=== PATIENT | male | born 1955 | race Hispanic/Latino ===

== ENCOUNTER 2021-05-09 06:16 | Day surgery (SDC) | payer OTHER ==
[2021-05-09] MEDS: Ringers Lactate 1,000 ML IV ONE ×2 (06:50→07:13)
[2021-05-09] MEDS ORDERED: propofoL 200 MG/20 ML VIAL IV ONE ×3 (07:07→07:18)
[2021-05-09] MEDS ORDERED: LIDOCAINE 1% MPF 2 ML AMPULE ONE (07:07)
[2021-05-09] MEDS ORDERED: GLYCOPYRROLATE 0.2 MG/ML SYR ONE (07:07)
[2021-05-09 08:35] VITALS: O2SAT 97
[2021-05-09 08:37] VITALS: BP 165/76; TEMP 97.2
== END 2021-05-09 08:25 | disposition home or self-care (01) ==
LOC: OR 06:16
PROVIDERS: ATTEND Surgery
PROC: 0DJD8ZZ Inspection of Lower Intestinal Tract, Via Natural or Artificial Opening Endoscopic (ICD-10-PCS; principal; 2021-05-09 07:30)
DX: K62.5 Hemorrhage of anus and rectum (principal); K64.4 Residual hemorrhoidal skin tags; K64.8 Other hemorrhoids; K57.30 Diverticulosis of large intestine without perforation or abscess without bleeding; Z20.822 Contact with and (suspected) exposure to COVID-19
CPT/HCPCS: 45378; U0003; J2704; J7120

== ENCOUNTER 2021-10-29 07:22 | Day surgery (SDC) | payer OTHER ==
[2021-10-29 07:51] LABS: Hematocrit 41.8 % (39.6-49.0); Lymphocytes % 27.3 % (15.3-44.8); MPV 8.7 fL (7.6-11.3); RBC Red Blood Cell Count 4.67 M/uL (4.33-5.43)
--- NOTE | 2021-10-29 08:00 | RAD REPORT ---
EXAM DESCRIPTION: RAD - Chest Pa And Lat (2 Views) - 10/29/2021 7:54 am CLINICAL HISTORY: pre procedural screening Chest pain. COMPARISON: No comparisons FINDINGS: The lungs are emphysematous but clear. The heart is upper limit of normal in size. No disp laced fractures. IMPRESSION: Prominent COPD. The USPSTF recommends annual screening for lung cancer with low-dose CT (LDCT) in adults aged 50 to 8 0 years who have a 20 pack-year smoking history and currently smoke or have quit within the past 15 y ears.
[2021-10-29] MEDS ORDERED: CEFAZOLIN SODIUM 1 GM/VIAL ONE (08:04)
[2021-10-29] MEDS ORDERED: Ringers Lactate 1,000 ML IV ONE (08:04)
[2021-10-29] MEDS ORDERED: FENTANYL CITR 100 MCG/2 ML ONE ×2 (08:11→08:27)
[2021-10-29] MEDS ORDERED: propofoL 200 MG/20 ML VIAL IV ONE ×2 (08:11→08:26)
[2021-10-29] MEDS ORDERED: ROCURONIUM 50 MG/5 ML VIAL IV ONE (08:11)
[2021-10-29] MEDS ORDERED: MIDAZOLAM HCL 2 MG/2 ML INJ ONE ×2 (08:11→08:27)
[2021-10-29] MEDS ORDERED: LIDOCAINE 1% MPF 5 ML VIAL ONE (08:11)
[2021-10-29 08:19] LABS: Potassium 3.9 mmol/L (3.5-5.1)
[2021-10-29] MEDS ORDERED: ONDANSETRON 4 MG/2 ML VIAL ONE ×2 (08:27→10:23)
[2021-10-29] MEDS ORDERED: KETOROLAC 30 MG/ML INJ ONE (08:27)
[2021-10-29] MEDS ORDERED: dexAMETHasone 10 MG/ML VIAL ONE (08:27)
[2021-10-29] MEDS ORDERED: LIDOCAINE 2% MPF 5 ML VIAL ONE (08:27)
--- NOTE | 2021-10-29 09:47 | P.BOP ---
Preoperative diagnosis: tender SubQ back mass Postoperative diagnosis: same Primary procedure: Excisional biopsy of tender SubQ back mass 5 x 4.5 cm Volunteer Services Coordinator: BRITTNY CHURCHILL (THERAPIST SPEECH) Estimated blood loss: <10cc Specimen: mass Findings: mass Anesthesia: General Complications: None Transferred to: Recovery Room Condition: Good
[2021-10-29] MEDS ORDERED: HYDROMORPHONE HCL 1 MG/ML INJ ONE (10:23)
[2021-10-29] MEDS ORDERED: CODEINE 30MG/APAP 300MG TAB PO ONE (10:58)
[2021-10-29] MEDS ORDERED: CODEINE 30MG/APAP 300MG TAB ONE (11:04)
[2021-10-29 11:22] VITALS: BP 138/67; TEMP 96.8; O2SAT 97
--- NOTE | 2021-10-29 13:19 | EKG ---
Test Date: 2021-10-29 Test Time: 07:45:24 Casing Splitter: ANJU MEASUREMENT RESULTS: Intervals: Rate: 63 SD: 176 QRSD: 86 QT: 422 QTc: 431 Watrous: P: 32 SD: 176 QRS: 32 T: 49 INTERPRETIVE STATEMENTS: Normal sinus rhythm Normal ECG No previous ECG available for comparison Electronically Signed On 10-29-21 13:18:13 CDT by Omer Fraser
--- NOTE | 2021-10-29 13:22 | OP ---
Date of Procedure: 10/29/2021 Surgeon: Nhan Shetty MD Marble Helper: Deann Augustine. Preoperative Diagnosis: Tender subcutaneous back mass. Postoperative Diagnosis: Tender subcutaneous back mass. Procedure: Excisional biopsy of tender subcutaneous back mass, 5 x 4.5 cm Estimated Blood Loss: Less than 10 mL. Specimen: Mass. Finding: Mass. Anesthesia: General plus local. Complications: None. Indication: This is the case of a 66-year-old patient, comes with an expanding mass in the back. Th e patient had some procedure done before, came back once again even larger with tenderness. This was done many years ago at another institution. The benefits, alternatives, and risks of excisional bio psy of tender mass fully explained, which include, but not limited to infection, bleeding, damage to adjacent structures, anesthesia complication, recurrence, AL, and even . He also understands th is may not relieve any symptoms. He might need more than one surgical intervention. He understood, signed a consent. The patient also marked the area with me in the holding room. Procedure In Detail: The patient was brought to the operating room, placed in supine position. Anes thesia was done without complication. The back area was prepped and draped in the usual sterile fash ion. The patient was placed in lateral decubitus position with proper protection. The back area was prepped and draped in the usual sterile fashion. Local anesthesia was applied after time-out was ca lled. A wedge incision was made in the skin to include the mass and the previous scars. Incision wa s carried down to deep subcutaneous tissue, this goes all the way down to fascia of the muscle, but d oes not penetrate the muscle. The mass was completely excised. The area was irrigated. In order fo r us to approximate this, we have to close this in layers. So, we used 0 chromic in the deep layers, then 0 chromic in mid layers, and then 3-0 nylon on the skin. Sponge count and instrument counts co rrect. Irrigation and hemostasis were obtained before closure. The patient was sent to recovery in stable condition. Sponge count and instrument count were correct. CARRIE/MODL Voice ID: [id number] Report ID: [id number]
--- NOTE | 2021-10-29 13:26 | DS ---
Date of Discharge: 10/29/2021 Diagnosis: Tender subcutaneous back mass. Procedure: Excisional biopsy of tender subcutaneous back mass, 5 x 4.5 cm. Surgeon: Nhan Shetty MD. Disposition: Home. Activity: As tolerated. No heavy lifting. Plan: Follow up in my office in 1 week. Call for appointment at [phone]. Keep area dry for 48 onur rs, then may shower. CARRIE/ROSA Voice ID: [id number] Report ID: [id number]
== END 2021-10-29 11:16 | disposition home or self-care (01) ==
LOC: OR 07:22
PROVIDERS: ATTEND Surgery
PROC: 0JB70ZZ Excision of Back Subcutaneous Tissue and Fascia, Open Approach (ICD-10-PCS; principal; 2021-10-29 09:30)
DX: L72.0 Epidermal cyst (principal); Z20.822 Contact with and (suspected) exposure to COVID-19; F17.210 Nicotine dependence, cigarettes, uncomplicated
CPT/HCPCS: 93005; 85025; 80048; 36415; 88304; 71046; 11406; U0003; J2704; J2250; J3010; J1100; J7120; J2405; J0690; J1170